=== PATIENT | female | born 1975 | race Caucasian/White ===

== ENCOUNTER 2016-11-28 10:31 | Emergency (ER) | payer SELFPAY ==
[~2016-11-28] VITALS: Ht 172.7 cm; Wt 78.0 kg
[~2016-11-28 10:31] MED LIST: PRED50 PO; ZITHTAB PO
[2016-11-28 10:35] VITALS: BP 120/77; PULSE 90; RESP 20; TEMP 97.8; O2SAT 95
[2016-11-28] MEDS ORDERED: ALBU.5I NEB (10:54)
[2016-11-28] MEDS ORDERED: SYMB160A INH (10:54)
[2016-11-28] MEDS ORDERED: PRED20 PO (10:54)
[2016-11-28] MEDS ORDERED: DOXY100C PO (10:54)
--- NOTE | 2016-11-28 10:54 | PD ---
HPI Chief Complaint: Cold / Flu Symptoms Time Seen by Provider: 10:40 Travel History International Travel<30 days: No Contact w/Intl Traveler<30days: No Traveled to known affect area: No History of Present Illness HPI 41-year-old smoker with history of COPD here with complaint of approximately 1.5 months of cough, chest congestion. Patient was seen here one month ago and treated with Z-Paul and prednisone with slight improvement of her symptoms, states that they never went away but didn't get better. Over the last week her symptoms have increased despite using home albuterol nebulizer. She is intermittently compliant with Symbicort inhaler. Versus or chills. Cough is dry and nonproductive. PFSH Past Medical History Anxiety: No Depression: No Cancer: No Cardiovascular Problems: Yes Chest Pain: Yes (pleural) COPD: Yes Diabetes: No Endocrine: No Gastrointestinal Disorders: Yes (hepatitis b+c) Genitourinary: No Hepatitis: Yes (c) Immune Disorder: No Implanted Vascular Access Dvce: No Musculoskeletal: Yes (chronic back) Neurologic: No Psychiatric: No Reproductive: No Respiratory: Yes (COPD) Immunizations Current: No Ectopic : Yes Past Surgical History Section: Yes Gynecologic Surgery: Yes (- TUBAL ) Other Surgery: Yes Social History Alcohol Use: No Tobacco Use: Yes (0.5 ppd ) Substance Use: No Allergies-Medications (Allergen,Severity, Reaction): Coded Allergies: No Known Allergies (Verified , 08/20/16) Reported Meds & Prescriptions Reported Meds & Active Scripts Active Prednisone 50 Mg Tab 50 Mg PO DAILY 5 Days Zithromax Z-Paul (Azithromycin) 250 Mg Dspk 250 Mg PO DIRECTED 500 MG (2 tabs) day 1, then 1 tab days 2-5. Review of Systems Except as stated in HPI: all other systems reviewed are Neg Physical Exam Narrative GENERAL: Well-appearing female in no acute distress SKIN: Warm and dry. HEAD: Normocephalic. EYES: No scleral icterus. No injection or drainage. ENT: Mucous membranes pink and moist. NECK: Supple CARDIOVASCULAR: Regular rate and rhythm. No murmur appreciated. RESPIRATORY: No accessory muscle use. Minimal expiratory wheeze GASTROINTESTINAL: Abdomen soft, non-tender, nondistended. MUSCULOSKELETAL: No edema. NEUROLOGICAL: Awake and alert. Normal speech. PSYCHIATRIC: Appropriate mood and affect; insight and judgment normal. Data Data Last Documented VS Vital Signs Date Time Temp Pulse Resp B/P Pulse Ox O2 Delivery O2 Flow Rate FiO2 11/28/16 10:35 97.8 90 20 120/77 95 Room Air MDM Medical Decision Making Medical Screen Exam Complete: Yes Emergency Medical Condition: Yes Medical Record Reviewed: Yes Differential Diagnosis 41-year-old smoker with history of COPD here with 1.5 months of cough, chest congestion despite being treated briefly with steroids and Z-Paul. Differential includes chronic bronchitis, COPD exacerbation, emphysema, pneumonia, viral syndrome. Narrative Course Patient is overall well-appearing. She is still smoking which is no doubt contributing to her underlying symptoms. She was encouraged to quit smoking. She will be treated as an outpatient with longer course of steroids, antibiotics and was referred to establish care with PCP, patient assistance. Diagnosis Primary Impression: COPD exacerbation Additional Impressions: Bronchitis Tobacco abuse Referrals: Natty Cárdenas MD call for appointment [facility] call for appointment Patient Assistance Program call for appointment Additional Instructions: Breathing treatments as prescribed. Steroids and antibiotics as prescribed. Follow-up to enroll in patient assistance and establish care with Dr. Cárdenas. Med/Other Pt SpecificInfo: Prescription(s) given Scripts Doxycycline Hyclate 100 Mg [id number] Mg PO BID 7 Days Ref 0 Prov:Margo Ventura MD 11/28/16 Prednisone 20 Mg Tab20 Mg PO DIRECTED 10 Days Ref 0 40 MG daily x 5 days, then 20 MG daily x 5 days. Prov:Margo Ventura MD 11/28/16 Albuterol Neb 2.5 Mg/0.5 Ml Neb2.5 Mg NEB q4h PRN (SOB/WHEEZING) #1 BOX Ref 0 Note: The Albuterol Sulfate Inhalation Solution is concentrated and must be diluted. Read complete instructions carefully before using. Prov:Margo Ventura MD 11/28/16 Budesonide-Formoterol Inh (Symbicort Inh)160-4.5 Mcg/Act Aero2 Puff INH Q12HR # 1 INHALER Ref 0 Prov:Margo Ventura MD 11/28/16 Disposition: 01 DISCHARGE HOME Condition: Stable Margo Ventura MD Nov 28, 2016 10:54
== END 2016-11-28 11:31 | disposition home or self-care (01) ==
LOC: NEPC 10:31
DX: J44.1 Chronic obstructive pulmonary disease with (acute) exacerbation (principal); J40 Bronchitis, not specified as acute or chronic; F17.210 Nicotine dependence, cigarettes, uncomplicated
CPT/HCPCS: 99283

== ENCOUNTER 2017-06-08 09:43 | Emergency (ER) | payer SELFPAY ==
[~2017-06-08] VITALS: Ht 172.7 cm; Wt 72.5 kg
[~2017-06-08 09:43] MED LIST changes: +ALBU.5I NEB; +DOXY100C PO; +PRED20 PO; -PRED50 PO; +SYMB160A INH; -ZITHTAB PO
[2017-06-08 09:45] VITALS: BP 115/72; PULSE 72; RESP 20; TEMP 98.3; O2SAT 98
[2017-06-08] MEDS ORDERED: KETOROLAC TROMETHAMINE 30 MG/ML (IVP) VIAL IV PUSH ONE (10:45)
[2017-06-08] MEDS ORDERED: RESP: ALBUTEROL 2.5 MG/IPRATROPIUM 0.5 MG NEB (SCH) NEB ONE (10:45)
--- NOTE | 2017-06-08 10:45 | PD ---
HPI Chief Complaint: back pain/cough. Time Seen by Provider: 10:00 Travel History International Travel<30 days: No Contact w/Intl Traveler<30days: No Traveled to known affect area: No History of Present Illness HPI 41 year old female with a history of COPD and chronic hepatitis complaining of low back and leg pain x 1 week. The pain is sharp and constant. It is primarily located on the lumbar spine but radiates to the entire lower back. She denies any injury, trauma, change in activity, or prior back surgery. She has tried ibuprofen with mild pain relief. She states that she normally has some back pain is been gradually getting worse. She is also having shortness of breath and dry cough x 3 days. She denies any fever, sweats, nausea, vomiting, diarrhea, and dysuria. She has tried her albuterol nebulizer and Advair inhaler without significant improvement. No saddle anesthesia and no dysuria no foot drop no problems emulating. PFSH Past Medical History Anxiety: No Depression: No Cancer: No Cardiovascular Problems: Yes Chest Pain: Yes (pleural) COPD: Yes Diabetes: No Diminished Hearing: No Endocrine: No Gastrointestinal Disorders: Yes (hepatitis b+c) Genitourinary: No Hepatitis: Yes (c & b) Immune Disorder: No Implanted Vascular Access Dvce: No Musculoskeletal: Yes (chronic back) Neurologic: No Psychiatric: No Reproductive: No Respiratory: Yes (copd) Immunizations Current: No ?: Unknown Ectopic : Yes Past Surgical History Surgical History: No Previous Surgery Section: Yes Gynecologic Surgery: Yes (- TUBAL ) Other Surgery: Yes Social History Alcohol Use: No Tobacco Use: Yes Substance Use: No (previous) Allergies-Medications (Allergen,Severity, Reaction): Coded Allergies: No Known Allergies (Verified , 06/08/17) Reported Meds & Prescriptions Reported Meds & Active Scripts Active Azithromycin 250 Mg Tab 250 Mg PO DIRECTED Take 2 tabs (500 mg) on day 1 then 1 tab daily x 4 days. Prednisone 20 Mg Tab 60 Mg PO DAILY 5 Days Albuterol Neb (Albuterol Sulfate) 2.5 Mg/0.5 Ml Neb 2.5 Mg NEB Q4H PRN Note: The Albuterol Sulfate Inhalation Solution is concentrated and must be diluted. Read complete instructions carefully before using. Symbicort Inh (Budesonide/Formoterol Fumarate) 160-4.5 Mcg/Act Aero 2 Puff INH Q12HR Review of Systems Except as stated in HPI: all other systems reviewed are Neg General / Constitutional: No: Fever, Chills Cardiovascular: No: Chest Pain or Discomfort Respiratory: Positive: Cough, Shortness of Breath, Wheezing Gastrointestinal: No: Nausea, Vomiting, Diarrhea, Abdominal Pain, Constipation Genitourinary: No: Urgency, Frequency, Dysuria Musculoskeletal: Positive: Pain (lower back, leg pain) Skin: No Rash Neurologic: No: Weakness, Dizziness, Syncope Physical Exam Narrative GENERAL: No acute distress. Sitting in mild pain. SKIN: Warm and dry. HEAD: Atraumatic. Normocephalic. EYES: Pupils equal and round. No scleral icterus. No injection or drainage. ENT: No nasal bleeding or discharge. Mucous membranes pink and moist. NECK: Trachea midline. No JVD. CARDIOVASCULAR: Regular rate and rhythm. RESPIRATORY: No accessory muscle use. Mild expiratory wheezing bilaterally. Breath sounds equal bilaterally. Good air entry, normal work of breathing. GASTROINTESTINAL: Abdomen soft, non-tender, nondistended. Mild right upper quadrant tenderness to palpation. MUSCULOSKELETAL: Extremities without clubbing, cyanosis, or edema. No obvious deformities. Mild tenderness to palpation over lumbar spine. No step-off. No midline T or C-spine tenderness. NEUROLOGICAL: Awake and alert. No obvious cranial nerve deficits. Motor grossly within normal limits. Five out of 5 muscle strength in the arms and legs. Normal speech. PSYCHIATRIC: Appropriate mood and affect; insight and judgment normal. Data Data Last Documented VS Vital Signs Date Time Temp Pulse Resp B/P Pulse Ox O2 Delivery O2 Flow Rate FiO2 06/08/17 10:06 89 18 96 Room Air 06/08/17 09:45 98.3 115/72 Orders Spine, Lumbar - Ltd (Ap & Lat) (06/08/17 ) Chest, Pa & Lat (06/08/17 ) Albuterol-Ipratropium Neb (Duoneb Neb) (06/08/17 10:45) Ketorolac Inj (Toradol Inj) (06/08/17 10:45) Urinalysis - C+S If Indicated (06/08/17 10:44) Ketorolac Inj (Toradol Inj) (06/08/17 11:00) Ibuprofen (Motrin) (06/08/17 11:45) Labs Laboratory Tests Test 06/08/17 10:00 Urine Color LIGHT-YELLOW Urine Turbidity CLEAR Urine pH 7.0 Urine Specific [place] 1.011 Urine Protein NEG mg/dL Urine Glucose (UA) NEG mg/dL Urine Ketones NEG mg/dL Urine Occult Blood NEG Urine Nitrite NEG Urine Bilirubin NEG Urine Urobilinogen LESS THAN 2.0 MG/DL Urine Leukocyte Esterase SMALL Urine RBC LESS THAN 1 /hpf Urine WBC 1 /hpf Urine Squamous Epithelial 6 /hpf Cells Urine Bacteria OCC /hpf Urine Mucus FEW /lpf Microscopic Urinalysis Comment CULT NOT INDICATED MDM Medical Decision Making Medical Screen Exam Complete: Yes Emergency Medical Condition: Yes Differential Diagnosis Differential includes: COPD exacerbation Pneumonia Bronchitis UTI Lower back muscle strain Cauda equina syndrome considered but excluded clinically Narrative Course Patient roomed in emergency department, she is actually not having any respiratory difficulty but instead complains of low back pain. She also states she's been having some mild wheezing. Images were obtained as follows: Last 24 hours Impressions Lumbar Spine X-Ray 06/08/17 0000 Signed Impressions: Service Date/Time: Thursday, June 08, 2017 11:03 - CONCLUSION: Unremarkable limited examination of the lumbar spine. Enzo Barrientos MD Chest X-Ray 06/08/17 0000 Signed Impressions: Service Date/Time: Thursday, June 08, 2017 11:07 - CONCLUSION: No acute disease. Jose De Guzman MD Patient appears well, she is driving home and was given Toradol. Breathing treatment was given and patient is feeling better. Discussed that she needs to follow up with her primary care physician. She stable for discharge. Diagnosis Primary Impression: Bronchitis Additional Impression: Back pain Qualified Code: M54.42 - Acute low back pain with bilateral sciatica, unspecified back pain laterality Referrals: [email or web address] Scripts Azithromycin 250 Mg [id number] Mg PO DIRECTED #6 TAB Ref 0 Take 2 tabs (500 mg) on day 1 then 1 tab daily x 4 days. Prov:Gautam Omalley MD 06/08/17 Prednisone 20 Mg Tab60 Mg PO DAILY 5 Days Ref 0 Prov:Gautam Omalley MD 06/08/17 Disposition: 01 DISCHARGE HOME Condition: Stable Gautam Omalley MD Jun 08, 2017 10:45
[2017-06-08] MEDS ORDERED: KETOROLAC TROMETHAMINE 60 MG/2 ML (IM) VIAL IM ONE (11:00)
--- NOTE | 2017-06-08 11:18 | RADRPT ---
EXAM DATE/TIME: 06/08/2017 11:03 [facility] COMPARISON: No previous studies available for comparison. INDICATIONS : Low back pain x1 week, no known injury to back. MEDICAL HISTORY : Chronic obstructive pulmonary disease. SURGICAL HISTORY : None. ENCOUNTER: Initial ACUITY: 1 week PAIN SCORE: 10/10 LOCATION: Bilateral mid lumbar spine. FINDINGS: Two view examination was performed. There are five non-rib bearing vertebral bodies. The vertebral bodies are in normal alignment without evidence of subluxation or scoliosis. The disc spaces are yue ntained. The pedicles are intact. Bony mineralization is normal. No fracture is identified. Lumbar ization of S1. CONCLUSION: Unremarkable limited examination of the lumbar spine. Enzo Barrientos MD on June 08, 2017 at 11:16 Board Certified Radiologist. This report was verified electronically.
[2017-06-08 11:19] LABS: BACTERIA, URINE OCC /hpf; BLOOD, URINE NEG (NEG); COMMENT (UR) CULT NOT INDICATED; CULTURE IF INDICATED CULT NOT INDICATED; GLUCOSE,URINE NEG (NEG); KETONE, URINE NEG (NEG); MUCUS URINE FEW /lpf (OCC); NITRITE,URINE NEG (NEG); SQUAMOUS EPITHELIAL CELL URINE 6 /hpf (0-5); URINE COLOR LIGHT-YELLOW (YELLW/STRAW)
[2017-06-08] MEDS ORDERED: IBUPROFEN 800 MG TAB PO ONE (11:45)
[2017-06-08] MEDS ORDERED: PRED20 PO (11:55)
[2017-06-08] MEDS ORDERED: AZIT250T3 PO (11:55)
--- NOTE | 2017-06-08 12:48 | RADRPT ---
EXAM DATE/TIME: 06/08/2017 11:07 [facility] COMPARISON: CHEST PA & LAT, August 20, 2016, 19:24. INDICATIONS : Short of breat, congestion, deep cough x1 week. MEDICAL HISTORY : Chronic obstructive pulmonary disease. SURGICAL HISTORY : None. ENCOUNTER: Initial ACUITY: 1 week PAIN SCORE: 3/10 LOCATION: Bilateral chest FINDINGS: PA and lateral views of the chest demonstrate the lungs to be symmetrically aerated without evidence of mass, infiltrate or effusion. The cardiomediastinal contours are unremarkable. Osseous structure s are intact. CONCLUSION: No acute disease. Jose De Guzman MD on June 08, 2017 at 12:47 Board Certified Radiologist. This report was verified electronically.
== END 2017-06-08 13:04 | disposition home or self-care (01) ==
LOC: NEPD 09:43
DX: J40 Bronchitis, not specified as acute or chronic (principal); M54.9 Dorsalgia, unspecified; M79.606 Pain in leg, unspecified; J44.9 Chronic obstructive pulmonary disease, unspecified; B19.10 Unspecified viral hepatitis B without hepatic coma; B19.20 Unspecified viral hepatitis C without hepatic coma; Z79.51 Long term (current) use of inhaled steroids; Z79.899 Other long term (current) drug therapy; Z72.0 Tobacco use
CPT/HCPCS: 71020; 72100; 81001; 94664; 99284

== ENCOUNTER 2017-11-05 08:54 | Emergency (ER) | payer SELFPAY ==
[~2017-11-05] VITALS: Ht 172.7 cm; Wt 82.0 kg
[~2017-11-05 08:54] MED LIST changes: +AZIT250T3 PO; -DOXY100C PO
[2017-11-05 09:00] VITALS: BP 166/72; PULSE 72; RESP 12; TEMP 98.5; O2SAT 98
[2017-11-05] MEDS ORDERED: methylPREDNISolone SOD SUCC 125 MG/2 ML VIAL IV PUSH ONE (09:15)
[2017-11-05] MEDS ORDERED: RESP: ALBUTEROL 2.5 MG/IPRATROPIUM 0.5 MG NEB (SCH) INH ONE (09:15)
--- NOTE | 2017-11-05 09:19 | PD ---
HPI Chief Complaint: Cold / Flu Symptoms Time Seen by Provider: 09:04 Travel History International Travel<30 days: No Contact w/Intl Traveler<30days: No Traveled to known affect area: No History of Present Illness HPI 41-year-old female with a history of COPD presents with an exacerbation of her symptoms for 2-3 days. Patient states that she's been around her sick roommates and started developing the symptoms. Patient says that she feels short of breath and has a mild headache. Patient has a nonproductive cough but denies fevers or chills. Patient denies back pain, abdominal pain, leg pain. She denies recent travel, blood disorders, surgeries, fractures, history of DVTs. Patient has been using her at home inhaler treatments which includes albuterol and an inhaled corticosteroid. These have not provided her enough relief so she decided to come to the emergency department today. States these symptoms are similar to those when she has problems with her COPD. PFSH Past Medical History Anxiety: No Depression: No Cancer: No Cardiovascular Problems: Yes Chest Pain: Yes (pleural) COPD: Yes Diabetes: No Diminished Hearing: No Endocrine: No Gastrointestinal Disorders: Yes (hepatitis b+c) Genitourinary: No Hepatitis: Yes (c & b) Immune Disorder: No Implanted Vascular Access Dvce: No Musculoskeletal: Yes (chronic back) Neurologic: No Psychiatric: No Reproductive: No Respiratory: Yes (COPD) Immunizations Current: No ?: Not Ectopic : Yes Past Surgical History Section: Yes Gynecologic Surgery: Yes (- TUBAL ) Other Surgery: Yes Social History Alcohol Use: No Tobacco Use: No Substance Use: No (previous) Allergies-Medications (Allergen,Severity, Reaction): Coded Allergies: No Known Allergies (Verified Adverse Reaction, Unknown, 11/05/17) Reported Meds & Prescriptions Reported Meds & Active Scripts Active Prednisone 10 Mg Tab 10 Mg PO DAILY 10 Days Cipro (Ciprofloxacin HCl) 500 Mg Tab 500 Mg PO BID 10 Days Tessalon Perles (Benzonatate) 100 Mg Cap 100 Mg PO TID PRN 7 Days Symbicort Inh (Budesonide/Formoterol Fumarate) 160-4.5 Mcg/Act Aero 2 Puff INH Q12HR Albuterol Neb (Albuterol Sulfate) 2.5 Mg/0.5 Ml Neb 2.5 Mg NEB Q4H PRN Note: The Albuterol Sulfate Inhalation Solution is concentrated and must be diluted. Read complete instructions carefully before using. Review of Systems Except as stated in HPI: all other systems reviewed are Neg Physical Exam Narrative GENERAL: Well-developed well-nourished in no apparent distress SKIN: Focused skin assessment warm/dry. HEAD: Atraumatic. Normocephalic. EYES: Pupils equal and round. No scleral icterus. No injection or drainage. ENT: No nasal bleeding or discharge. Mucous membranes pink and moist. THROAT: No pharyngeal injection, exudates, or tonsillar hypertrophy. Airway is patent. NECK: Trachea midline. No JVD. No lymphadenopathy CARDIOVASCULAR: Regular rate and rhythm. No murmur appreciated. RESPIRATORY: No accessory muscle use. Breath sounds equal bilaterally. Diffuse wheezing GASTROINTESTINAL: Abdomen soft, non-tender, nondistended. Hepatic and splenic margins not palpable. MUSCULOSKELETAL: No obvious deformities. No clubbing. No cyanosis. No edema. Homans sign negative bilaterally NEUROLOGICAL: Awake and alert. No obvious cranial nerve deficits. Motor grossly within normal limits. Normal speech. PSYCHIATRIC: Appropriate mood and affect; insight and judgment normal. Data Data Last Documented VS Vital Signs Date Time Temp Pulse Resp B/P (MAP) Pulse Ox O2 Delivery O2 Flow Rate FiO2 11/05/17 11:43 11/05/17 10:42 70 18 97 Room Air 11/05/17 09:00 98.5 Orders Orders Chest, Single Ap (11/05/17 09:15) Methylprednisolone So Succ Inj (Solumedr (11/05/17 09:15) Albuterol-Ipratropium Neb (Duoneb Neb) (11/05/17 09:15) Methylprednisolone So Succ Inj (Solumedr (11/05/17 09:45) Ed Discharge Order (11/05/17 11:01) MDM Medical Decision Making Medical Screen Exam Complete: Yes Emergency Medical Condition: Yes Differential Diagnosis COPD exacerbation, pneumonia, upper a suture infection, noncompliance Narrative Course 41-year-old female with a history of COPD presents with an exacerbation of her symptoms for 2-3 days. Patient states that she's been around her sick roommates and started developing the symptoms. Patient says that she feels short of breath and has a mild headache. Patient has a nonproductive cough but denies fevers or chills. Patient denies back pain, abdominal pain, leg pain. She denies recent travel, blood disorders, surgeries, fractures, history of DVTs. Patient has been using her at home inhaler treatments which includes albuterol and an inhaled corticosteroid. These have not provided her enough relief so she decided to come to the emergency department today. States these symptoms are similar to those when she has problems with her COPD. Vital signs stable. No tachycardia or hypoxia noted. Patient states compliance with her medication. Physical exam with diffuse wheezing without rhonchi or rales. Chest x-ray without acute process. DuoNeb administered in the emergency department. Patient states she feels better. Upon reevaluation patient was resting comfortably in bed. She has no complaints. Patient be discharged with Medrol Dosepak, refill of her inhaler, and azithromycin. Patient educated on the importance of follow-up with primary care physician. Patient given [employer] information. Patient vital signs remained stable Advised patient that if she worsens or persists return to the emergency department. Educated patient on the importance of taking medication as prescribed Diagnosis Primary Impression: COPD exacerbation Referrals: Primary Care Physician Additional Instructions: Take medication as prescribed. Continue to use your inhalers from home. Take all antibiotics as prescribed. Follow up with primary care physician within 2-3 days. Scripts Prednisone (Prednisone) 10 Mg Tab 10 MG PO DAILY for 10 Days, #10 TAB 0 Refills Prov: Aguila Goldsmith MD 11/05/17 Ciprofloxacin (Cipro) 500 Mg Tab 500 MG PO BID for Infection for 10 Days, #20 TAB 0 Refills Prov: Aguila Goldsmith MD 11/05/17 Benzonatate (Tessalon Perles) 100 Mg Cap 100 MG PO TID Y for COUGH for 7 Days, CAP 0 Refills Prov: Aguila Goldsmith MD 11/05/17 Budesonide-Formoterol Inh (Symbicort Inh) 160-4.5 Mcg/Act Aero 2 PUFF INH Q12HR, #1 INHALER 0 Refills Prov: Aguila Goldsmith MD 11/05/17 Disposition: 01 DISCHARGE HOME Condition: Stable Lucia Oliveira Nov 05, 2017 09:19
[2017-11-05] MEDS ORDERED: methylPREDNISolone SOD SUCC 125 MG/2 ML VIAL IM ONE (09:45)
--- NOTE | 2017-11-05 10:41 | RADRPT ---
EXAM DATE/TIME: 11/05/2017 09:44 [facility] COMPARISON: CHEST SINGLE AP, October 31, 2016, 11:57. INDICATIONS : Cough and fever MEDICAL HISTORY : None. SURGICAL HISTORY : None. ENCOUNTER: Initial ACUITY: 1 day PAIN SCORE: 0/10 LOCATION: Bilateral chest FINDINGS: A single view of the chest demonstrates the lungs to be symmetrically aerated without evidence of mas s, infiltrate or effusion. The cardiomediastinal contours are unremarkable. Osseous structures are intact. CONCLUSION: No acute disease. Gautam Ayers MD on November 05, 2017 at 10:38 Board Certified Radiologist. This report was verified electronically.
[2017-11-05 10:42] VITALS: BP 105/65; PULSE 70; RESP 18; O2SAT 97
[2017-11-05] MEDS ORDERED: MEDR4PAK PO (10:58)
[2017-11-05] MEDS ORDERED: SYMB160A INH (10:58)
[2017-11-05] MEDS ORDERED: AZIT250T3 PO (11:00)
[2017-11-05] MEDS ORDERED: BENZ100 PO (11:28)
[2017-11-05] MEDS ORDERED: CIPR-9 PO (11:37)
[2017-11-05] MEDS ORDERED: PRED10 PO (12:25)
== END 2017-11-05 11:43 | disposition home or self-care (01) ==
LOC: NEPD 08:54
DX: J44.1 Chronic obstructive pulmonary disease with (acute) exacerbation (principal); R51 Headache
CPT/HCPCS: 71010; 94664; 96372; 99284; J2930